=== PATIENT | male | born 1975 | race Caucasian/White ===

== ENCOUNTER 2025-04-05 12:56 | Emergency (ER) | payer SELFPAY ==
[2025-04-05] MEDS ORDERED: Ketorolac Tromethamine 30 MG (1 mL) VIAL ONE (13:03)
== END 2025-04-05 14:05 | disposition home or self-care (01) ==
LOC: ERS 12:56
DX: M25.561 Pain in right knee (principal); M25.571 Pain in right ankle and joints of right foot; V19.9XXA Pedal cyclist (driver) (passenger) injured in unspecified traffic accident, initial encounter
CPT/HCPCS: 96372; 99283; J1885